=== PATIENT | female | born 1960 | race Caucasian/White ===

== ENCOUNTER 2018-01-16 10:46 | Outpatient (CLI) | payer MEDICARE, MEDICAID, SELFPAY ==
--- NOTE | 2018-01-16 13:43 | DI.RAD_ITS ---
SYMPTOMS/DIAGNOSIS: INJURY, M25.561 RIGHT KNEE: Three views were obtained. The patient reportedly has a history of recent trauma. There is marked loss of the cartilaginous joint space of the patellofemoral joint. There are prominent hypertrophic spurs of the bones of the knee most prominent at the patellofemoral joint. No acute fracture is seen. There appears to a joint effusion. If there is a high clinical suspicion of fracture, additional evaluation with CT could be considered.
== END 2018-01-16 11:06 ==
PROVIDERS: PCP Internal Medicine Sleep Medicine; Visit Provider Nurse Practitioner
DX: M25.461 Effusion, right knee (principal); M25.561 Pain in right knee; S89.81XA Other specified injuries of right lower leg, initial encounter
CPT/HCPCS: 73562

== ENCOUNTER 2018-02-25 09:13 | Emergency (ER) | payer MEDICARE, MEDICAID, SELFPAY ==
[2018-02-25 09:20] VITALS: BP 101/63; PULSE 88; RESP 18; TEMP 36.7; O2SAT 100
--- NOTE | 2018-02-25 09:35 | ED.GENADUL_ITS ---
Discharge Plan Disposition Patient Disposition: HOME Discharge Details Chief Complaint: Nk/Back Pain Clinical Impression: Headache, Neck pain Primary Care Provider: Matt Murrell ED Provider: Alberto Durbin Home Meds and New Rx's Prescriptions: Continued multivitamin 1 EACH tablet 1 tab PO DAILY RF: 0 CALCIUM 600 + D TABLET 1 EACH tablet 1 tab PO every other day RF: 0 Probiotic and Acidophilus 1 EACH capsule 1 ea PO DAILY RF: 0 simvastatin [Zocor] 20 MG tablet 1 tab PO HS Qty: 90 RF: 4 fluticasone 16 GM spray,suspension 1 - 2 spray NS DAILY Qty: 1 RF: 1 loratadine [Claritin] 10 MG tablet 1 tab PO DAILY Qty: 90 RF: 4 nystatin 60 GM powder 1 jolie Topical BID PRNQty: 60 RF: 11 hydrocortisone 30 GM cream 1 applic Topical BID PRNQty: 30 RF: 1 acetaminophen [Acetaminophen Extra Strength] 500 MG tablet 500 mg PO TID PRN RF: 0 Xarelto 20 MG tablet 20 mg PO DAILY RF: 0 Ultra-Light Rollator 1 EACH misc 1 ea Miscellaneous ONCE Qty: 1 RF: 0 Discharge Instructions Instructions: General Headache (ED) Additional Instructions: Please contact your primary care physician to arrange follow-up. Return to the ER for any worsening or new concerning symptoms. Discharge Data Discharge Date/Time-TO BE ENTERED AT DEPARTURE: 02/25/18 11:55 Medical Decision Making 9:33 -- 57yo f with down syndrome and afib on xarelto here with neck pain 1.5 weeks and now posterior JEROME since last night. Neuro intact. Plan for CT head. Patient hesitant but I was able to convince of need for CT. 11:30 --CT head negative per radiology. Patient reassessed and has remained stable. Patient has no pain at this time. She and family requesting discharge. I discussed results with patient and family and limitations of CT. Discussed additional diagnostics including LP - patient/faimly does not wish to pursue additional diagnostics and understands risks. Disposition decision was made weighing the risks and benefits of hospitalization versus outpatient treatment, the risk for further decompensation, and the patient's wishes. The patient was stable and requested discharge. Prior to discharge, my usual and customary return precautions were reviewed with the patient - this included follow-up instructions and reason to return to the emergency department if condition worsens, does not improve as expected, or other new concerns arise. HPI General Mode of arrival: ambulatory . Date/Time Provider Initiated Documentation: 02/25/18 09:18 . Limitations to Documentation: no limitations . Information obtained by: patient and family . HPI Narrative: 57yo f with down syndrome and afib on xarelto here with neck pain 1.5 weeks and now posterior JEROME since last night. JEROME is mild to moderate. Frontal. No modifiers. Does not recall specific traumatic event. No associated numbness, weakness or visual changes. Related Data Home Medications Medication Instructions Recorded Confirmed Calcium 600 + D Tablet 1 tab PO every other day 07/10/12 02/25/18 multivitamin 1 tab PO DAILY 07/10/12 02/25/18 Probiotic and Acidophilus 1 ea PO DAILY 10/30/14 02/25/18 fluticasone 1 - 2 spray NS DAILY #1 bottle 10/30/14 02/25/18 loratadine [Claritin] 1 tab PO DAILY #90 tab-cap 10/30/14 02/25/18 simvastatin [Zocor] 1 tab PO HS #90 tab-cap 10/30/14 02/25/18 nystatin 1 jolie TOPICAL BID PRN #60 gm 02/16/15 02/25/18 hydrocortisone 1 applic TOPICAL BID PRN #30 gm 04/05/15 02/25/18 acetaminophen [Acetaminophen Extra 500 mg PO TID PRN tab-cap 05/21/15 02/25/18 Strength] Ultra-Light Rollator #1 ea 09/06/17 02/25/18 Xarelto 20 mg PO DAILY 09/06/17 02/25/18 Previous Rx's Medication Instructions Recorded Ultra-Light Rollator #1 ea 09/06/17 Allergies Allergy/AdvReac Type Severity Reaction Status Date / Time No Known Allergies Allergy Unverified 09/06/17 09:51 General Stated Complaint: Nk/Back Pain TINO: 3 Review of Systems Constitutional Denies fever(s) Neurologic Reports as per HPI PFSH Surgical History Cholecystectomy HEART REPAIR/REVISION Family History Mother Personal history of malignant neoplasm Father Essential hypertension Heart disease Hyperlipidemia Brother Hyperlipidemia Grandfather No problems noted. Grandfather No problems noted. Grandmother Essential hypertension Grandmother Personal history of malignant neoplasm Other Hypothyroidism Social History Smoking/Tobacco Use Status: Never Exam Const General: cooperative and no acute distress HENMT Head: normocephalic and atraumatic Mouth: moist mucous membranes Eyes Conjunctivae: normal conjunctivae Sclera: normal sclerae EOM: EOM intact bilaterally Neck Neck: full ROM, no meningeal signs, trachea midline and supple Resp Auscultation: clear to auscultation bilaterally, no rales, no rhonchi and no wheezes Cardio Jugular venous pressure: no JVD Rate: regular rate and not tachycardic Rhythm: regular rhythm GI Palpation: soft, not firm, no guarding, no masses, not rigid and nontender Skin General skin exam: no rashes or lesions noted Neuro General: alert, awake, oriented x3, tone normal and no focal motor deficits Cranial Nerves: CN's II-XI intact bilaterally Speech: speech normal Motor: strength 5/5 throughout Sensory Exam: no sensory deficits noted Extrem General: no edema Psych Appearance: grossly normal Mental Status: mental status grossly normal Speech and Movement: speech and movement normal Course Vital Signs Temperature 36.7 C 02/25/18 09:20 Pulse 88 02/25/18 09:20 Respiratory Rate 18 02/25/18 09:20 Blood Pressure 101/63 02/25/18 09:20 Pulse Oximetry 100 02/25/18 09:20 Temperature 36.7 C 02/25/18 09:20 Temperature Source Temporal Artery Scan 02/25/18 09:20 Pulse 88 02/25/18 09:20 Respiratory Rate 18 02/25/18 09:20 Respiratory Effort Non-Labored 02/25/18 09:24 Blood Pressure 101/63 02/25/18 09:20 Blood Pressure Position Sitting 02/25/18 09:20 Pulse Oximetry 100 02/25/18 09:20 Oxygen Delivery Method Room Air 02/25/18 09:20 Oxygen Flow Rate 0 02/25/18 09:20 Pain Level 10 02/25/18 09:27
--- NOTE | 2018-02-25 10:00 | DI.CT_ITS ---
SYMPTOM/DIAGNOSIS: PAIN IN POSTERIOR RT HEAD, ON XARELTO CRANIAL CT: 02/25/[address] was performed. 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 No evidence of acute intracranial hemorrhage, mass effect or midline shift. The orbital and temporal bone structures appear intact. The visualized paranasal sinuses are clear. CONCLUSION: No evidence of acute intracranial process.
[2018-02-25 11:43] VITALS: BP 100/60; PULSE 83; TEMP 36.7; O2SAT 99
[2018-02-25 11:50] VITALS: BP 100/60; PULSE 83; RESP 18; TEMP 36.7; O2SAT 99
== END 2018-02-25 11:55 | disposition home or self-care (01) ==
PROVIDERS: Emergency Provider Student in an Organized Health Care Education/Training Program; PCP Internal Medicine Sleep Medicine
DX: R51 Headache (principal); M54.2 Cervicalgia; I48.91 Unspecified atrial fibrillation; Z79.01 Long term (current) use of anticoagulants
CPT/HCPCS: 99284; 70450

== ENCOUNTER 2018-08-11 11:27 | Emergency (ER) | payer MEDICARE, MEDICAID, SELFPAY ==
--- NOTE | 2018-08-11 11:28 | W.ED.GENAD ---
Discharge Plan Disposition Patient Disposition: HOME Condition: Stable Discharge Details Chief Complaint: Cellulitis Clinical Impression: Cellulitis of finger Primary Care Provider: Matt Murrell ED Provider: Frida Bee Home Meds and New Rx's Prescriptions: New cephalexin [Keflex] 500 mg capsule 500 mg PO QID 7 Days Qty: 28 RF: 0 Continued multivitamin 1 EACH tablet 1 tab PO DAILY RF: 0 CALCIUM 600 + D TABLET 1 EACH tablet 1 tab PO every other day RF: 0 Probiotic and Acidophilus 1 EACH capsule 1 ea PO DAILY RF: 0 simvastatin [Zocor] 20 MG tablet 1 tab PO HS Qty: 90 RF: 4 fluticasone propionate 16 GM spray,suspension 1 - 2 spray NS DAILY Qty: 1 RF: 1 loratadine [Claritin] 10 MG tablet 1 tab PO DAILY Qty: 90 RF: 4 nystatin 60 GM powder 1 jolie Topical BID PRNQty: 60 RF: 11 hydrocortisone 30 GM cream 1 applic Topical BID PRNQty: 30 RF: 1 acetaminophen [Acetaminophen Extra Strength] 500 MG tablet 500 mg PO TID PRN RF: 0 Xarelto 20 MG tablet 20 mg PO DAILY RF: 0 Ultra-Light Rollator 1 EACH misc 1 ea Miscellaneous ONCE Qty: 1 RF: 0 Discharge Instructions Instructions: Cellulitis (ED) Additional Instructions: Apply warm compresses to the affected area a few times daily for 20 minutes at a time. Take the antibiotics until finished. Follow-up with your primary care doctor in 2 days for reevaluation. If your symptoms do not improve, you may need a different antibiotic or consideration of an antifungal medication or possibly incision and drainage if an abscess develops. Return immediately to the emergency department if you develop any worsening or new concerning symptoms such as fever, increased pain, redness or swelling. Discharge Data Discharge Date/Time-TO BE ENTERED AT DEPARTURE: 08/11/18 11:59 Discharge Physician: Frida Bee Medical Decision Making 58-year-old female who presents with right thumb edema and erythema since yesterday. No fever. Patient had nail clipping done recently by dermatology 2 weeks ago for concern for fungal infection. She had not received any antifungal treatment recently. BP 84/57. Mother states that patient has a history of hypotension and states this is a normal blood pressure for her. Map 63. Afebrile. Patient appears nontoxic. There is a minimal amount of erythema and edema noted just proximal to the cuticle. This does not appear consistent with paronychia as there is no fluctuance. Appears most likely c/w early mild cellulitis. Discussed with mom and patient that this could be an early bacterial infection and/or fungal infection. Will treat with antibiotics at this time and recommend follow-up evaluation by primary care doctor. Discussed that if symptoms do not improve or worsen, she may need a different antibiotic, consideration of antifungal medication, or possible incision and drainage. BP prior to discharge 111/64. HPI General Mode of arrival: ambulatory. Date/Time Provider Initiated Documentation: 08/11/18 11:28. Limitations to Documentation: no limitations. Information obtained by: patient and family. HPI Narrative: Patient is a 58-year-old female w/ a h/o Downs syndrome who presents to the ED w/ a c/o R thumb pain since yesterday. Pt presents with her mother who also provides most of the history. Mom states that pt saw dermatology 2 weeks ago and had a her R thumb nail clipped to test for fungal infection but she did not hear back whether regarding the result. Mom states she noticed that pt had redness and swelling just proximal to nail bed. Denies fever or injury. Pt has been eating and drinking ok. Pt takes penicillin prior to dentist appointments due to h/o cardiac surgery and states she last took them last week and will be taking them again this week. Mom states that pt was treated for a fungal nail infection last year with oral antifungals. Related Data Home Medications Medication Instructions Recorded Confirmed Calcium 600 + D Tablet 1 tab PO every other day 07/10/12 08/11/18 multivitamin 1 tab PO DAILY 07/10/12 08/11/18 Probiotic and Acidophilus 1 ea PO DAILY 10/30/14 08/11/18 fluticasone propionate 1 - 2 spray NS DAILY #1 bottle 10/30/14 08/11/18 loratadine [Claritin] 1 tab PO DAILY #90 tab-cap 10/30/14 08/11/18 simvastatin [Zocor] 1 tab PO HS #90 tab-cap 10/30/14 08/11/18 nystatin 1 jolie TOPICAL BID PRN #60 gm 02/16/15 08/11/18 hydrocortisone 1 applic TOPICAL BID PRN #30 gm 04/05/15 08/11/18 acetaminophen [Acetaminophen Extra 500 mg PO TID PRN tab-cap 05/21/15 08/11/18 Strength] Ultra-Light Rollator #1 ea 09/06/17 02/25/18 Xarelto 20 mg PO DAILY 09/06/17 08/11/18 cephalexin [Keflex] 500 mg PO QID 7 Days #28 cap 08/11/18 Previous Rx's Medication Instructions Recorded Ultra-Light Rollator #1 ea 09/06/17 cephalexin [Keflex] 500 mg PO QID 7 Days #28 cap 08/11/18 Allergies Allergy/AdvReac Type Severity Reaction Status Date / Time No Known Allergies Allergy Unverified 09/06/17 09:51 General TINO: 3 Review of Systems Review of Systems All systems reviewed & are unremarkable except as noted in HPI and below Constitutional Reports as per HPI, Denies chills and Denies fever(s) Eyes Denies blurry vision ENT Denies dizziness, Denies sore throat and Denies throat swelling Cardiovascular Denies chest pain and Denies dyspnea Respiratory Denies cough and Denies dyspnea Gastrointestinal Denies abdominal pain, Denies diarrhea and Denies vomiting Genitourinary Denies hematuria and Denies dysuria Musculoskeletal Denies back pain and Denies numbness Integumentary/Breasts Reports lesions and Denies rash Neurologic Denies dizziness, Denies focal weakness and Denies numbness Allergic/Immunologic Denies throat swelling [facility] Medical History Down syndrome (Acute) Atrial fibrillation (Chronic) Surgical History Cholecystectomy HEART REPAIR/REVISION Family History Mother Personal history of malignant neoplasm Father Essential hypertension Heart disease Hyperlipidemia Brother Hyperlipidemia Grandfather No problems noted. Grandfather No problems noted. Grandmother Essential hypertension Grandmother Personal history of malignant neoplasm Other Hypothyroidism Social History Smoking/Tobacco Use Status: Never Alcohol Intake: never Drug use: Never Do you feel safe in your relationship?: Yes Exam Const General: cooperative, healthy appearing and no acute distress HENMT Head: normal to inspection Mouth: oral mucosae normal Eyes General: appearance normal, both eyes and all related structures Neck Neck: normal visual inspection Resp Effort & Inspection: normal respiratory effort and able to speak in complete sentences Cardio Rate: regular rate Skin General skin exam: no rashes or lesions noted Neuro General: alert, awake and oriented x3 Motor: muscle tone normal throughout Extrem Hand/finger images: 1. Minimal erythema and edema. No fluctuance, induration, drainage or bleeding. No rashes noted. Psych Appearance: grossly normal Affect: normal affect
[2018-08-11 11:31] VITALS: BP 84/57; PULSE 90; RESP 16; TEMP 36.1; O2SAT 94
[2018-08-11 11:59] VITALS: BP 111/64
== END 2018-08-11 11:59 | disposition home or self-care (01) ==
LOC: ER 11:58
PROVIDERS: Emergency Provider Physician Assistant; PCP Internal Medicine Sleep Medicine
DX: L03.011 Cellulitis of right finger (principal); Q90.9 Down syndrome, unspecified
CPT/HCPCS: 99283

== ENCOUNTER 2020-01-27 03:35 | Outpatient (CLI) | payer MEDICARE, MEDICAID, SELFPAY ==
[2020-01-27 09:35] LABS: HCT 41.6 % (36.0-46.0); HGB 13.7 g/dL (11.2-15.7); MCH 34.6 pg (27.0-33.0); MCHC 32.9 % (32.0-36.0); MCV 105.1 fL (80-95); MPV 10.2 fL (8.0-11.0); Platelet Count 198 10^3/uL (130-400); RBC 3.96 10^6/uL (3.93-5.22); RDW 13.9 % (11.7-14.6); RDW-SD 53.8 fL; WBC 3.76 10^3/uL (4.4-10.8)
[2020-01-27 10:12] LABS: Anion Gap 4.2 mmol/L (3-11); BUN 19 mg/dL (7-18); CO2 31.8 mmol/L (21.0-32.0); Calcium 8.5 mg/dL (8.5-10.1); Chloride 103 mmol/L (98-107); Estimated GFR 56.56 (mL/min/1.73m2); Glucose 79 mg/dL (74-106); Potassium 4.3 mmol/L (3.5-5.1); Sodium 139 mmol/L (136-145)
== END 2020-01-27 03:55 ==
PROVIDERS: PCP Internal Medicine Sleep Medicine; Visit Provider Internal Medicine Sleep Medicine
DX: Q90.9 Down syndrome, unspecified (principal)
CPT/HCPCS: 36415; 80048; 85027

== ENCOUNTER 2020-10-08 09:47 | Emergency (ER) | payer MEDICARE, MEDICAID, SELFPAY ==
--- OUTSIDE RECORDS SUMMARY | 2020-10-08 09:51 | XMS_ITS | Encounter Summary ---
:1960 Author Care Team Providers Name Role Phone Dr. Matt Murrell Primary Care Provider [phone] Primary Care Provider [phone] Dr. Matt Murrell Referring Provider [phone] Dr. Edwin Agee Referring Provider [phone] Reason for Visit Footcare Assessment and Plan 1. Ingrowing toenail 2. Onychomycosis of toenails Plan: Procedure #[id number] man ual nail debridement was performed using nail clippers on all ten mycotic nails on the right and left foot. Thickened discolored subungual mycotic debris was removed fro m the nailbeds. The patient tolerated the procedure well without complication. Fol low-up in clinic in 3 to 4 months 3. Pain of toe of left foot 4. Pain of toe of right foot 5. Bilateral atherosclerosis of arteries of lower limbs Discussion Note: None recorded.Patient educational handouts: No information available. Plan of Care Reminders Provider Appointments Foot on or around Henok Parrish 03/12/2021 DPM Lab None ? ? recorded. Referral None ? ? recorded. Procedures None ? ? recorded. Surgeries None ? ? recorded. Imaging None ? ? recorded. Medications Name Start Date ? ? Acetaminophen Extra Strength 500 mg tablet ? Take 2 tablets every 6 hours by oral route. Allergy Relief (fluticasone) 50 mcg/actuation nasal sp ray,suspension ? [place] 1 spray every day by intranasal route. amoxicillin 500 mg capsule ? Take 1 capsule by oral route. aspirin 81 mg tablet,delayed release ? Take 1 tablet every day by oral route. calcium carb,calcium gluconate 250 mg-vit D2 2.5 mcg ( 100 unit) tablet ? Take 1 tablet every day by oral route. doxycycline monohydrate 40 mg capsule,immediate - thi y release ? Take 1 capsule every day by oral route. econazole 1 % topical cream ? APPLY TO THE AFFECTED AND SURROUNDING A REAS OF SKIN BY TOPICAL ROUTE 2 TIMES PER DAY fluoxetine 20 mg tablet ? Take 1 tablet every day by oral route. ketoconazole 2 % topical cream ? APPLY TO THE AFFECTED AREA(S) BY TOPICAL ROUTE ONCE D AILY Lactobac 41-Bifido.bifidum,lactis-FOS 111 mg(25 billio n cell) capsule ? Take 1 capsule every day by oral route. loratadine 10 mg capsule ? Take 1 capsule every day by oral route. loratadine 10 mg tablet ? Take 1 tablet every day by oral route. metronidazole 0.75 % topical cream ? APPLY A THIN LAYER TO THE AFFECTED AREA (S) BY TOPICAL ROUTE 2 TIMES PER DAY IN THE MORNING AND EVENING multivitamin ? Nystop 100,000 unit/gram topical powder ? APPLY TO THE AFFECTED AREA(S) BY TOPICAL ROUTE 2 TIME S PER DAY simvastatin 20 mg tablet ? Take 1 tablet every day by oral route. vitamin B complex ? Vitamin D3 ? 1000 units daily Xarelto 20 mg tablet ? Take 1 tablet every day by oral route. Notes: Zeta care clear toenail o [place] Medications Administered None recorded. Vitals None recorded. Results Lab Results None recorded. Allergies Code Code System Name Reaction Severity Onset NKDA ? ? ? Notes: seasonal Problems Name Status Onset Date Source ? Heart Disease Active 12/14/2015 ? Discoloration of Skin Active 12/14/2015 ? 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 History of Artificial Heart Valve Active 12/14/2015 ? Cold Extremities Active 12/14/2015 ? Onychomycosis Due to Dermatophyte Active 01/13/2020 ? Onychomycosis Active 01/13/2020 ? Atrial Fibrillation Active 01/13/2020 ? Atrial Flutter Active 01/13/2020 ? Osteoarthritis Active 01/13/2020 ? Hemarthrosis Active 01/13/2020 ? Congenital Heart Disease Active 01/13/2020 ? Onychomycosis of Toenails Active 05/04/2020 ? Ingrowing Toenail Active 05/04/2020 ? [place] Reticularis Active 05/04/2020 ? Bilateral Atherosclerosis of Arteries of Active 021 ? Lower Limbs Pain of Toe of Left Foot Active 05/04/2020 ? Pain of Toe of Right Foot Active 05/04/2020 ? Procedures Date Name Performed by ? 05/04/2015 Cardioversion Electric Ext Information n ot available Vaccine List Vaccine Type Tdap 06/23/2011 Social History Tobacco Smoking Status Never Smoker Notes: 018 What was the date of your most recent 09/09/2020 tobacco screening? Have you travelled outside of [place] in the past 14 days? Have you experienced any of the following N symptoms in the past 48 hours? Fever/Chills, Cough, Shortness of breath or difficulty breathing, fatigue, muscle or body aches, headache, new loss of taste or smell, sore throat, congestion or runny nose, nausea or vomiting and/or diarrhea Are you currently waiting on results of a N COVID-19 test? Within the past 14 days, have you been in N close physical contact (6 feet or closer for a cumulative total of 15 minutes) with anyone that is known to have laboratory-confirmed COVID-19? OR Anyone who has any symptoms consistent with COVID-19? Are you isolating or quarantining because N you may have been exposed to a person with COVID-19 or are worried that you may be sick with COVID-19? Family History Relation Problem Onset Age of Age Notes Unspecified Relation Heart disease (No N/A (No No rosie) Information) Unspecified Relation Hypertensive disorder (No N/A (No Notes) Information) Functional Status Unknown. Past Encounters 09/09/2020 Ingrowing Toenail; Onychomycosis of Toen ails; Pain of Toe of Left Foot; Pain of Toe of Right Foot; Bilateral Atherosclerosis of Arteries of Lower Limbs Martin Puckett, DPM: [address] [place] [address], Ph. History of Present Illness Note: Lilian is a very pleasant 59-year-old handicapped female patient who was seen today for care for mycotic dystrophic ingrown nails on the right and left foot. Review of Systems ? Notes: all neg at this time Physical Exam ? Notes: Constitutional: well develop ed, appears stated age, well nourished, no acute distress, alert and oriented to time, place and person, weight-overweight

Vas cular:
Dorsalis pedis pulse-0/4 bilaterally
Posterior tib ial pulse-0/4 bilaterally
Venous filling time at the digit levels-1 second
Digital hair-absent
Skin texture and turgor-normal
Pedal te mperature-warm
Extremity varicosities-none noted
Edema-none noted&lt ;br>Ischemia-none noted
Cyanosis-no cyanosis of digits noted
Claudication : denies intermittent or nocturnal claudication in the extremities

[place] tologic: Libido reticularis skin mottling on the legs and feet bilaterally, e xamination is significant for painful mycotic, dystrophic incurvated ingrow n nails on the right and left foot x10. There is no evidence of drainage, ble eding, subungual hematoma or pyogenic granuloma present. There is no paronyc hial inflammation in the nail borders noted. No skin lesions, breaks in skin integrity or ulcerations are noted on the cutaneous surfaces of the lo wer legs, ankles or feet bilaterally.

Neurolog ic: Alert and oriented times 3, concentrating ability not decreased, symme trical bulk, strength and tone in the lower extremities, coordination is normal.
Sensory examination-intact without deficit
Motor examinat ion-intact without deficit
Coordination and tremors-no intentional or re sting tremors are noted, no adventitious movement noted
Muscle fasciculatio ns-no fasciculations noted in the lower extremity muscles
Atrophy-no atroph y noted in the intrinsic muscles of the feet, lower legs or thighs

Musculoskeletal: Able to rise from a chair and get up onto the orthopaedic examination table, no acute findings noted in the lower legs, ankles or feet b ilaterally

Gait: Normal gait and station, normal posture, no evidence of antalgia

This clinic note/operative note was created using [employer] voice recognition software. The note was reviewed by myself for prima ry content. There may be multiple small syntactical discrepancies an d errors due to the voice recognition limitations of the software-Dr. Puckett.< br>
--- OUTSIDE RECORDS SUMMARY | 2020-10-08 09:51 | XMS_ITS ---
:1960 Author Care Team Providers Name Role Phone DR. JAVIER GIRON Primary Care Provider [phone] DR. JAVIER GIRON Referring Provider [phone] DR. BILLIE NGO Primary Care Provider [phone] DR. HARMEET BRIGGS Referring Provider [phone] Allergies Code Code System Name Reaction Severity Status Onset NKDA ? Notes: seasonal Medications Name Status Start Date Stop Date ? ? Acetaminophen Extra Strength 500 mg tablet Active ? Not available Take 2 tablets every 6 hours by oral route. Allergy Relief (fluticasone) 50 mcg/actuation nasal spray,suspen sampson Active ? Not available [place] 1 spray every day by intranasal route. amoxicillin 500 mg capsule Active ? Not a vailable Take 1 capsule by oral route. aspirin 81 mg tablet,delayed release Active ? Not available Take 1 tablet every day by oral route. calcium carb,calcium gluconate 250 mg-vit D2 2.5 mcg (100 unit) tablet Active ? Not available Take 1 tablet every day by oral route. doxycycline monohydrate 40 mg capsule,immediate - delay release Active ? Not available Take 1 capsule every day by oral route. econazole 1 % topical cream Active ? Not available APPLY TO THE AFFECTED AND SURROUNDING A REAS OF SKIN BY TOPICAL ROUTE 2 TIMES PER DAY fluoxetine 20 mg tablet Active ? Not avai lable Take 1 tablet every day by oral route. ketoconazole 2 % topical cream Active ? N ot available APPLY TO THE AFFECTED AREA(S) BY TOPICAL ROUTE ONCE DAILY Lactobac 41-Bifido.bifidum,lactis-FOS 111 mg(25 billion cell) ca psule Active ? Not available Take 1 capsule every day by oral route. loratadine 10 mg capsule Active ? Not patrick ilable Take 1 capsule every day by oral route. loratadine 10 mg tablet Active ? Not avai lable Take 1 tablet every day by oral route. metronidazole 0.75 % topical cream Active ? Not available APPLY A THIN LAYER TO THE AFFECTED AREA (S) BY TOPICAL ROUTE 2 TIMES PER DAY IN THE MORNING AND EVENING multivitamin Active ? Not available Nystop 100,000 unit/gram topical powder Active ? Not available APPLY TO THE AFFECTED AREA(S) BY TOPICAL ROUTE 2 TIMES PER DAY potassium chloride ER 10 mEq capsule,extended release Completed ? 12/26/2016 Take 1 capsule every day by oral route. simvastatin 20 mg tablet Active ? Not patrick ilable Take 1 tablet every day by oral route. vitamin B complex Active ? Not available Vitamin D3 Active ? Not available 1000 units daily Xarelto 20 mg tablet Active ? Not availab le Take 1 tablet every day by oral route. Notes: Zeta care clear toenail o il Problems Name Status Onset Date Source ? Heart Disease Active 12/14/2015 ? Nail Problem Unknown 12/14/2015 ? Discoloration of Skin Active 12/14/2015 [...] Cardioversion Electric Ext Information n ot available Results Lab Results None recorded. Past Encounters 09/09/2020 Ingrowing Toenail; Onychomycosis of Toen ails; Pain of Toe of Left Foot; Pain of Toe of Right Foot; Bilateral Atherosclerosis of Arteries of Lower Limbs Martin Puckett, DPM: [address] [place] [address], Ph. 05/04/2020 Onychomycosis of Toenails; Ingrowing Toe nail; Pain of Toe of Right Foot; Pain of Toe of Left Foot; Bilateral Atherosclerosis of Arteries of Lower Limbs; Livedo Reticularis Martin Puckett, DPM: [address] [place] [address], Ph. 02/02/2020 Long-term Current Use of Anticoagulant; Onychomycosis of Toenails NAM [facility]idez[facility]: [address] [place] [address], Ph. Social History Tobacco Smoking Status Never Smoker Notes: 018 Vaccine List Vaccine Type Tdap 06/23/2011 Plan of Care Reminders Provider Appointments None ? ? recorded. Lab None ? ? recorded. Referral None ? ? recorded. Procedures None ? ? recorded. Surgeries None ? ? recorded. Imaging None ? ? recorded. Vitals 05/04/2020 02:15PM FOLLOW UP Weight Blood Pressure 85.28 kg 122/62 mm[Hg] 12/20/2017 01:30PM Foot Care Weight Blood Pressure 85.28 kg 118/62 mm[Hg] 05/28/2017 12:30PM Foot Care Weight Blood Pressure 85.28 kg 118/62 mm[Hg] 12/26/2016 01:15PM Foot Care Weight Blood Pressure 87.09 kg 118/62 mm[Hg] 09/25/2016 01:00PM Foot Care Weight Blood Pressure 87.09 kg 124/62 mm[Hg] 06/26/2016 12:45PM Foot Care Weight Blood Pressure 87.09 kg 128/65 mm[Hg] 03/22/2016 11:00AM Foot Care Weight Blood Pressure 84.37 kg 110/62 mm[Hg] 12/21/2015 11:00AM Foot Care Weight Blood Pressure 87.09 kg 124/72 mm[Hg]
[2020-10-08 09:53] VITALS: BP 105/60; PULSE 81; RESP 18; TEMP 36.6; O2SAT 100
--- NOTE | 2020-10-08 10:12 | ED.GENADUL_ITS ---
Discharge Plan Disposition Patient Disposition: HOME Condition: Stable Discharge Details Clinical Impression: Cat scratch of left lower leg Primary Care Provider: Matt Murrell ED Provider: Alberto Durbin Home Meds and New Rx's Prescriptions: New azithromycin 250 mg tablet 250 mg PO DAILY 4 Days Qty: 4 RF: 0 Continued multivitamin 1 EACH tablet 1 tab PO DAILY RF: 0 CALCIUM 600 + D TABLET 1 EACH tablet 1 tab PO every other day RF: 0 Probiotic and Acidophilus 1 EACH capsule 1 ea PO DAILY RF: 0 simvastatin [Zocor] 20 MG tablet 1 tab PO HS Qty: 90 RF: 4 loratadine [Claritin] 10 MG tablet 1 tab PO DAILY Qty: 90 RF: 4 nystatin 60 GM powder 1 jolie Topical BID PRNQty: 60 RF: 11 hydrocortisone 30 GM cream 1 applic Topical BID PRNQty: 30 RF: 1 acetaminophen [Acetaminophen Extra Strength] 500 MG tablet 500 mg PO TID PRN RF: 0 Xarelto 20 MG tablet 20 mg PO DAILY RF: 0 (DME) Ultra-Light Rollator 1 EACH misc 1 ea Miscellaneous ONCE Qty: 1 RF: 0 Discharge Instructions Instructions: Cat Scratch Disease (ED) Additional Instructions: Please take antibiotic as prescribed. You were given initial dose in the emergency department today. Your next dose is tomorrow. You received a Boostrix tetanus shot today. Please contact your primary care physician to arrange follow-up. Return to the ER for any worsening or new concerning symptoms. Referrals: Matt Murrell [Primary Care Provider] - Medical Decision Making 1044 --60-year-old female with Down syndrome here with cat scratch to left great toe, tenderness that MTP and dorsal foot with no swelling or erythema. No localized lymphadenopathy. Given persistent tenderness over the past 2 days, consider infection. Plan to treat with azithromycin 500 mg here and continue 250 mg go to hand for 4 days. Patient is at year 9 of tetanus vaccination. I will give booster today. Usual customary discharge instructions reviewed with patient and guardian. HPI General Mode of arrival: ambulatory . Date/Time Provider Initiated Documentation: 10/08/20 10:12 . Limitations to Documentation: no limitations . Information obtained by: patient . HPI Narrative: 60-year-old female with history of Down syndrome presents with chief complaint of cat scratch. Patient was scratched by her vaccinated pet cat sometime in the past week. She sustained superficial laceration to her left great toe from the scratch. She has subsequently developed pain in her toe and dorsal foot. No associated swelling or redness. No fever. No other symptoms. Related Data Home Medications Medication Instructions Recorded Confirmed Calcium 600 + D Tablet 1 tab PO every other day 07/10/12 10/08/20 multivitamin 1 tab PO DAILY 07/10/12 10/08/20 Probiotic and Acidophilus 1 ea PO DAILY 10/30/14 10/08/20 loratadine [Claritin] 1 tab PO DAILY #90 tab-cap 10/30/14 10/08/20 simvastatin [Zocor] 1 tab PO HS #90 tab-cap 10/30/14 10/08/20 nystatin 1 jolie TOPICAL BID PRN #60 gm 02/16/15 10/08/20 hydrocortisone 1 applic TOPICAL BID PRN #30 gm 04/05/15 10/08/20 acetaminophen [Acetaminophen Extra 500 mg PO TID PRN tab-cap 05/21/15 10/08/20 Strength] Ultra-Light Rollator #1 ea 09/06/17 02/25/18 Xarelto 20 mg PO DAILY 09/06/17 10/08/20 azithromycin 250 mg PO DAILY 4 Days #4 tab 10/08/20 Previous Rx's Medication Instructions Recorded Ultra-Light Rollator #1 ea 09/06/17 azithromycin 250 mg PO DAILY 4 Days #4 tab 10/08/20 Allergies Allergy/AdvReac Type Severity Reaction Status Date / Time No Known Allergies Allergy Unverified 10/08/20 09:55 General Stated Complaint: Laceration TINO: 4 Review of Systems Integumentary/Breasts Skin/Breast: Reports as per HPI Hematologic/Lymphatic Hematologic/Lymphatic: Reports as per HPI PFSH Medical History Atrial fibrillation Down syndrome History of impacted cerumen Impacted cerumen (02/20/13) Surgical History Cholecystectomy HEART REPAIR/REVISION of Tetralogy of Fallot Family History Mother Personal history of malignant neoplasm skin Father Essential hypertension Heart disease Hyperlipidemia Brother Hyperlipidemia Grandfather No problems noted. Grandfather No problems noted. Grandmother Essential hypertension Grandmother Personal history of malignant neoplasm Liver Other Hypothyroidism Social History Smoking/Tobacco Use Status: Never Smoking risk assessment performed?: Yes Alcohol Intake: never Drug use: Never Substance use type: does not use Do you feel safe at home: Yes Exam Const General: cooperative and no acute distress Cardio Rate: regular rate and not tachycardic Rhythm: regular rhythm Skin Trauma: laceration (Left great toe 2 cm linear healing laceration, no open wound) Neuro General: patient alert, patient awake and tone normal Extrem General: no edema Left lower extremity: foot Details: normal capillary refill, tenderness Location: of the dorsal foot Location: distally and of the great toe Location: at the MTP joint, toes with normal ROM and vascular exam Details: dorsalis pedis pulse present; no edema Course Vital Signs Vital signs: Vital Signs Temperature 36.6 C 10/08/20 09:53 Pulse 81 10/08/20 09:53 Respiratory Rate 18 10/08/20 09:53 Blood Pressure 105/60 10/08/20 09:53 Pulse Oximetry 100 10/08/20 09:53 Temperature 36.6 C 10/08/20 09:53 Temperature Source Skin 10/08/20 09:53 Pulse 81 10/08/20 09:53 Respiratory Rate 18 10/08/20 09:53 Respiratory Effort Non-Labored 10/08/20 09:58 Blood Pressure 105/60 10/08/20 09:53 Blood Pressure Position Sitting 10/08/20 09:53 Pulse Oximetry 100 10/08/20 09:53 Oxygen Delivery Method Room Air 10/08/20 09:53 Oxygen Flow Rate 0 10/08/20 09:53 Pain Level 8 10/08/20 09:53
[2020-10-08] MEDS: Azithromycin 250 MG TAB 500 MG PO (10:45)
== END 2020-10-08 10:57 | disposition home or self-care (01) ==
PROVIDERS: Emergency Provider Student in an Organized Health Care Education/Training Program; PCP Internal Medicine Sleep Medicine
DX: S91.112A Laceration without foreign body of left great toe without damage to nail, initial encounter (principal); W55.03XA Scratched by cat, initial encounter
CPT/HCPCS: 90471; 99284; 99282